=== PATIENT | female | born 1970 ===

== ENCOUNTER 2022-01-13 05:36 | Observation (INO) ==
[2022-01-09 12:02] LABS: Basophils % 0.3 % (0.0-0.8); Eosinophils # 0.3 10*3/uL (0.0-0.87); Hematocrit 41.1 VOL% (35.7-47.0); Hemoglobin 13.5 GM/DL (12.0-16.0); Immature Granulocytes % 0.3 %; Immature Granulocytes Absolute 0.03 #; Lymphocytes # 3.5 10*3/uL (1.4-4.0); Lymphocytes % 32.6 % (21.3-54.2); Mean Corpuscular HGB Conc 32.8 GM/DL (32-36); Mean Corpuscular Volume 89.5 FL (87-102); Mean Platelet Volume 10.4 FL (9.6-12.0); Monocytes # 0.7 10*3/uL (0.11-0.8); Monocytes % 6.7 % (1.7-12.7); Neutrophils % 57.1 % (38.7-73.9); Platelet Count 326 T/CUMM (130-400); Red Blood Count 4.59 MC/CUMM (3.8-5.5); Red Cell Distribution Width 12.7 % (9.3-17.3); White Blood Count 10.6 T/CUMM (4-12)
[2022-01-09 12:16] LABS: Mucus,Urine Occasional /LPF (Occasional); RBC,Urine 1 /HPF (0-4); Squamous Epithelial Cell,Urine Occasional /HPF (0-10)
[2022-01-09 12:17] LABS: Bilirubin,Urine Negative (Negative); Blood, Urine Negative (Negative); Glucose,Urine (UA) Negative (Negative); Ketones,Urine Negative (Negative); Nitrite,Urine Negative (Negative); Protein,Urine Negative (Negative); Urine Appearance Clear (Clear); Urine Color Yellow (Yellow); Urine Specific Gravity 1.025 (1.001-1.035); Urine Urobilinogen 0.2 eU/dL (<2.0)
[2022-01-09 12:31] LABS: Alanine Aminotransferase 25 U/L (13-56); Albumin 3.9 G/DL (3.4-5.0); Alkaline Phosphatase 108 U/L (45-117); Aspartate Amino Transferase 13 U/L (0-37); Bilirubin,Total < 0.39 MG/DL (0.20-1.00); Blood Urea Nitrogen 10 MG/DL (7-18); Calcium 9.5 MG/DL (8.5-10.1); Carbon Dioxide 28 MMOL/L (21-32); Chloride 107 MMOL/L (98-107); Cholesterol 149 MG/DL (50-200); Glucose 98 MG/DL (74-106); HDL Cholesterol 55 MG/DL (40-60); Osmolality,Calculated 279.3 MOS/KG (273-304); Potassium 4.6 MMOL/L (3.5-5.1); Risk Ratio 2.71; Sodium 141 MMOL/L (136-145); Total Protein 7.2 G/DL (6.4-8.2); Triglycerides 90 MG/DL (2-150)
[2022-01-09 13:06] LABS: HIV Antigen/Antibody Result Nonreactive (Nonreactive)
[2022-01-13] MEDS ORDERED: AMPICILLIN/SULBACTAM 3,000 MG in SODIUM CHLORIDE 0.9% 100 ML IV ONE (06:30)
[2022-01-13] MEDS ORDERED: propofoL 200 MG/20 ML VIAL IV ONE (06:44)
[2022-01-13] MEDS ORDERED: SEVOFLURANE 1 UNIT/15 MINUTE INH ONE (06:44)
[2022-01-13] MEDS ORDERED: MIDAZOLAM 2 MG/2 ML VIAL ONE ×2 (06:44)
[2022-01-13] MEDS ORDERED: LIDOCAINE 2% 5 ML VIAL ONE (06:44)
[2022-01-13] MEDS ORDERED: ROCURONIUM 50 MG/5 ML VIAL IV ONE (06:44)
[2022-01-13] MEDS ORDERED: TISSUE ADHESIVE 1 EACH APPLICATOR TOP ONE (06:55)
[2022-01-13] MEDS ORDERED: BUPIVACAINE MPF 0.25% 10 ML VIAL ONE (06:55)
[2022-01-13] MEDS ORDERED: LACTATED RINGERS 1,000 ML IV SCH (07:00)
[2022-01-13] MEDS ORDERED: LIDOCAINE 1%/EPI INJ 20 ML VIAL ONE (07:07)
[2022-01-13] MEDS ORDERED: SUFentanil 50 MCG/ML AMP ONE (07:12)
[2022-01-13] MEDS ORDERED: KETAMINE 500 MG/10 ML VIAL ONE (07:12)
[2022-01-13] MEDS ORDERED: PHENYLEPHRINE 1 MG/10 ML SYRINGE IV ONE (07:48)
[2022-01-13] MEDS ORDERED: ePHEDrine 50 MG/ML VIAL ONE (08:09)
[2022-01-13] MEDS ORDERED: ONDANSETRON 4 MG/2 ML VIAL ONE (08:55)
[2022-01-13] MEDS ORDERED: LACTATED RINGERS 1,000 ML IV ONE (08:55)
[2022-01-13] MEDS ORDERED: GLYCOPYRROLATE 0.4 MG/2 ML VIAL ONE (09:03)
[2022-01-13] MEDS ORDERED: NEOSTIGMINE 10 MG/10 ML VIAL ONE (09:03)
[2022-01-13] MEDS ORDERED: MAGNESIUM HYDROXIDE SUSP 30 ML UDCUP PO PRN (09:11)
[2022-01-13] MEDS ORDERED: ACETAMINOPHEN 325 MG TABLET PO PRN (09:11)
[2022-01-13] MEDS ORDERED: ONDANSETRON 4 MG/2 ML VIAL IV PRN ×2 (09:11→09:25)
[2022-01-13] MEDS ORDERED: BISACODYL 10 MG SUPP RECTAL PRN (09:11)
[2022-01-13] MEDS ORDERED: BENZOCAINE/MENTHOL LOZENGE 18/BOX PO PRN (09:11)
[2022-01-13] MEDS ORDERED: IBUPROFEN 800 MG TABLET PO PRN (09:11)
[2022-01-13] MEDS ORDERED: HYDROmorphone 1 MG/1 ML SYRINGE IV PRN (09:25)
[2022-01-13] MEDS ORDERED: MEPERIDINE 25 MG/1 ML VIAL IV PRN (09:25)
[2022-01-13] MEDS ORDERED: PROMETHAZINE INJ 25 MG in SODIUM CHLORIDE 0.9% 50 ML IV PRN (09:25)
[2022-01-13] MEDS ORDERED: diphenhydrAMINE 50 MG/1 ML VIAL IV PRN (09:25)
[2022-01-13] MEDS: HYDROmorphone 1 MG/1 ML SYRINGE IV PRN ×5 (09:30→21:59)
[2022-01-13] MEDS ORDERED: ACETAMINOPHEN INJ 1,000 MG/100 ML VIAL IV ONE ×2 (09:35→09:39)
[2022-01-13] MEDS ORDERED: KETOROLAC 30 MG/1 ML VIAL ONE (09:35)
[2022-01-13] MEDS ORDERED: KETOROLAC 30 MG/1 ML VIAL IV ONE (09:39)
[2022-01-13 10:01] LABS: Mucus,Urine Many /LPF (Occasional); RBC,Urine 7 /HPF (0-4); Squamous Epithelial Cell,Urine Occasional /HPF (0-10)
[2022-01-13 10:02] LABS: Glucose,Urine (UA) Negative (Negative); Ketones,Urine Negative (Negative); Nitrite,Urine Positive (Negative); Protein,Urine 30 mg/dL (Negative); Urine Appearance Clear (Clear); Urine Color Yellow (Yellow); Urine Specific Gravity > 1.030 (1.001-1.035); Urine pH 5.5 (4.5-8.0)
[2022-01-13 10:03] LABS: Bilirubin,Urine Negative (Negative); Blood, Urine Negative (Negative); Urine Urobilinogen 0.2 eU/dL (<2.0)
[2022-01-13] MEDS: LACTATED RINGERS 1,000 ML IV SCH ×2 (10:07→18:52)
[2022-01-13] MEDS ORDERED: HYDROmorphone 1 MG/1 ML SYRINGE IV ONE (11:28)
[2022-01-13] MEDS ORDERED: PROMETHAZINE 25 MG/1 ML VIAL IM ONE (11:28)
[2022-01-13] MEDS: DOCUSATE SODIUM 100 MG CAPSULE PO PRN (21:46)
[2022-01-14 04:39] LABS: Basophils % 0.3 % (0.0-0.8); Eosinophils # 0.2 10*3/uL (0.0-0.87); Hematocrit 37.1 VOL% (35.7-47.0); Hemoglobin 11.7 GM/DL (12.0-16.0); Immature Granulocytes % 0.3 %; Immature Granulocytes Absolute 0.03 #; Lymphocytes # 2.2 10*3/uL (1.4-4.0); Lymphocytes % 24.3 % (21.3-54.2); Mean Corpuscular HGB Conc 31.5 GM/DL (32-36); Mean Corpuscular Volume 92.1 FL (87-102); Mean Platelet Volume 9.7 FL (9.6-12.0); Monocytes # 0.5 10*3/uL (0.11-0.8); Monocytes % 5.9 % (1.7-12.7); Neutrophils % 67.2 % (38.7-73.9); Platelet Count 256 T/CUMM (130-400); Red Blood Count 4.03 MC/CUMM (3.8-5.5); Red Cell Distribution Width 12.9 % (9.3-17.3); White Blood Count 9.1 T/CUMM (4-12)
[2022-01-14] MEDS: SIMETHICONE CHEW 80 MG TABLET PO PRN (05:57)
[2022-01-14] MEDS: DOCUSATE SODIUM 100 MG CAPSULE PO PRN ×2 (08:38→21:16)
[2022-01-14] MEDS: METOCLOPRAMIDE 10 MG TABLET PO SCH ×4 (08:40→21:16)
[2022-01-14] MEDS: POLYETHYLENE GLYCOL POWDER 17 GM PACK PO SCH (10:05)
[2022-01-15] MEDS: SIMETHICONE CHEW 80 MG TABLET PO PRN ×2 (00:09→09:19)
[2022-01-15] MEDS: METOCLOPRAMIDE 10 MG TABLET PO SCH ×2 (03:27→09:19)
[2022-01-15] MEDS: POLYETHYLENE GLYCOL POWDER 17 GM PACK PO SCH (09:19)
[2022-01-15] MEDS: DOCUSATE SODIUM 100 MG CAPSULE PO PRN (09:19)
[2022-01-15 13:58] VITALS: BP 125/69
== END 2022-01-15 10:25 | disposition home or self-care (01) ==
LOC: N.OR 05:36 → N.SDSINP 05:37 → INTOOBSV 09:10 → N.OB 09:10
PROVIDERS: ADMIT Obstetrics & Gynecology; ATTEND Obstetrics & Gynecology